=== PATIENT | female | born 1965 ===

== ENCOUNTER → 2024-09-16 | Outpatient (REF) | payer OTHER ==
[2024-09-20 13:27] LABS: HPV APTIMA Not Detected (Not Detected)
== END ==
LOC: M LAB REF 12:51
PROVIDERS: ATTEND Registered Nurse
DX: Z01.419 Encounter for gynecological examination (general) (routine) without abnormal findings (principal); N95.2 Postmenopausal atrophic vaginitis
CPT/HCPCS: 87624; G0123